=== PATIENT | female | born 1990 | race Caucasian/White ===

== ENCOUNTER 2018-07-18 22:54 | Emergency (ER) | payer BC, OTHER ==
[~2018-07-18 22:54] MED LIST: ALBU8.5H IH; AMOX-559 PO; BUDE10.2 INH; CLO10 MT; FLUT1DIS29 IH; HYDR-385 PO; PRED20TA6 PO; TIOT4MIS2 INH
--- NOTE | 2018-07-18 22:58 | ER Report ---
History and Physical Time Seen By MD: 22:57 HPI/ROS CHIEF COMPLAINT: Difficulty breathing HISTORY OF PRESENT ILLNESS: 28-year-old female smoker presents to the ER with difficulty breathing. Patient was seen by her primary care physician a few days ago and started on Zithromax for an asthma exacerbation and bronchitis. She's failed to improve infectious got worse. She's having difficulty breathing tonight. REVIEW OF SYSTEMS: Respiratory: As above Cardiovascular: No chest pain, no palpitations. Gastrointestinal: No vomiting, no abdominal pain. Musculoskeletal: No back pain. Allergies: Coded Allergies: codeine (Verified Adverse Reaction, Unknown, "SLEPT FOR 24 HOURS", ) Home Meds Active Scripts Albuterol Sulfate (PROVENTIL HFA) 6.7 Gm Inh, 2 PUFF INH Q4-6H PRN for asthma SX, #1 INH Prov:ABDOUL DAVE DO 07/18/18 Codeine Phosphate/Guaifenesin (Guaifenesin-Codeine Syrup) 10 Mg-100 Mg/5 Ml Liquid, 5-10 ML PO Q4H PRN for COUGH, #120 Prov:ABDOUL DAVE DO 07/18/18 Prednisone 10 Mg Tab (PREDNISONE 10 MG TAB) 10 Mg Tablet, 10 MG PO QDAY PRN for reduce lung inflammation, #12 2 tabs daily for 4 days 1 tab daily for 4 days Prov:ABDOUL DAVE DO 07/18/18 Cefuroxime Axetil (CEFUROXIME) 500 Mg Tablet, 500 MG PO BID for infection, #20 TAB Prov:ABDOUL DAVE DO 07/18/18 Reported Medications Albuterol Sulfate 90 Mcg/Act (PROAIR HFA 90 MCG/ACT) 8.5 Gm Hfa.aer.ad, 1-2 PUFF IH 3-4XD, INHALER 07/18/18 Fluticasone/Salmeterol (ADVAIR 500-50 DISKUS) 1 Each Disk.w.dev, 1 EACH IH BID 07/18/18 Cetirizine Hcl (ZYRTEC) 10 Mg Tablet, 10 MG PO QDAY, TAB 07/18/18 Norgestrel-Ethinyl Estradiol (CRYSELLE) 1 Each Tablet, 1 EACH PO QDAY 07/18/18 Discontinued Reported Medications Fluticasone/Salmeterol (ADVAIR 500-50 DISKUS) 1 Each Disk.w.dev, 1 EACH IH BID 03/16/17 Discontinued Scripts Clotrimazole (CLOTRIMAZOLE) 10 Mg Troc, 1 EA MT 5XD, #70 EA 1 Refill Prov:ELIGIO SR RAFAEL [employer] SOFTWARE DESIGNER-C 03/16/17 Prednisone (PREDNISONE) 20 Mg Tablet, 2 TAB PO QDAY, #10 TAB 0 Refills Prov:JAMESREYESELIGIOHAJA HALL SYSTEM[employer] SOFTWARE DESIGNER-C 03/16/17 Hydrocodone Bit/Acetaminophen (HYDROCODON-ACETAMINOPHEN 5-325) 1 Each Tablet, 1 EACH PO Q6H PRN for pain / cough, #15 TAB Prov:ELIGIO SR RAFAEL [employer] SOFTWARE DESIGNER-C 03/16/17 Past Medical/Surgical History Past Medical History HEENT: Denies hx of: vision deficit Respiratory: Reports hx of: asthma Psychiatric: Reports hx of: anxiety depression PTSD Past Surgical History Additional Cardio surgeries VSD, Pericarditis Gastrointestinal: Reports hx of: appendectomy Reviewed Nurses Notes: Yes Old Medical Records Reviewed: Yes Smoking Status: Current: Every Day Smoker Constitutional Vital Sign - Last 24 Hours 07/18/18 07/18/18 07/18/18 07/18/18 22:58 22:59 23:09 23:15 Temp 98.5 Pulse 83 70 Resp 18 B/P (MAP) 117/89 (98) 117/87 Pulse Ox 96 96 96 O2 Delivery Room Air Room Air 07/18/18 07/18/18 07/18/18 07/18/18 23:15 23:24 23:37 23:39 Pulse 69 78 80 Resp 14 B/P (MAP) 108/75 (86) Pulse Ox 100 96 07/18/18 23:54 Pulse 81 Pulse Ox 96 Physical Exam General Appearance: The patient is alert, has no immediate need for airway protection and no current signs of toxicity. Vital signs stable, pulse ox normal, afebrile HEENT: Pupils equal and round no injection. TMs normal, oropharynx with moderate erythema, no exudate or petechiae Respiratory: Expiratory wheezing throughout all lung alex. Cardiac: regular rate and rhythm Gastrointestinal: Abdomen is soft and non tender, no masses, bowel sounds normal. Musculoskeletal: Neck: Neck is supple and non tender. No lymphadenopathy Extremities have full range of motion and are non tender. Skin: No rashes or lesions. DIFFERENTIAL DIAGNOSIS: After history and physical exam differential diagnosis was considered for bronchitis, asthma, pneumonia Medical Decision Making EKG/Imaging Imaging X-ray: Two-view chest x-ray was obtained. I viewed the images myself on the PACS system. My interpretation of the images is: Lung Alex are clear, no effusion, mediastinum is normal. The radiologist interpretation had no clinically significant variation from this interpretation. ED Course/Re-evaluation ED Course Patient admitted to an examination room. H&P was done. The differential diagnoses was considered. On clinical examination. Patient with with gross expiratory wheezing. Her vital signs are stable, pulse ox is normal. Patient's treated with DuoNeb 2, prednisone 60 mg by mouth. Chest x-ray was performed which was unremarkable. The results were discussed with the patient. She'll be treated with Ceftin, prednisone. She's given Robitussin-AC cough syrup to suppress her cough. She is advised to follow-up with her primary care if not improved in 3-5 days. She is advised to return to the ER for any worsening Decision to Disposition Date: Jul 18, 2018 Decision to Disposition Time: 23:46 Depart Departure Latest Vital Signs Vital Signs Date Time Temp Pulse Resp B/P (MAP) Pulse Ox O2 Delivery O2 Flow Rate FiO2 07/18/18 23:54 81 96 07/18/18 23:37 108/75 (86) 07/18/18 23:15 14 07/18/18 23:15 Room Air 07/18/18 22:59 98.5 Impression: Primary Impression: Acute bronchitis Additional Impressions: Asthma exacerbation Tobacco dependence Condition: Improved Disposition: HOME OR SELF-CARE Referrals: ELIGIO SR APRN SYSTEMS SOFTWARE DESIGNER-C (PCP) New Scripts Albuterol Sulfate (PROVENTIL HFA) 6.7 Gm Inh 2 PUFF INH Q4-6H PRN for asthma SX, #1 INH Prov: ABDOUL DAVE DO 07/18/18 Codeine Phosphate/Guaifenesin (Guaifenesin-Codeine Syrup) 10 Mg-100 Mg/5 Ml Liquid 5-10 ML PO Q4H PRN for COUGH, #120 Prov: ABDOUL DAVE DO 07/18/18 Prednisone 10 Mg Tab (PREDNISONE 10 MG TAB) 10 Mg Tablet 10 MG PO QDAY PRN for reduce lung inflammation, #12 2 tabs daily for 4 days 1 tab daily for 4 days Prov: ABDOUL DAVE DO 07/18/18 Cefuroxime Axetil (CEFUROXIME) 500 Mg Tablet 500 MG PO BID for infection, #20 TAB Prov: ABDOUL DAVE DO 07/18/18 Patient Instructions: Acute Bronchitis (ED), Asthma (ED) Additional Instructions: Follow-up with primary care if unimproved in 2-5 days Problem Qualifiers Primary Impression: Acute bronchitis Bronchitis organism: unspecified organism Qualified Codes: J20.9 - Acute bronchitis, unspecified Additional Impressions: Asthma exacerbation Asthma severity: mild Asthma persistence: persistent Qualified Codes: J45.31 - Mild persistent asthma with (acute) exacerbation ABDOUL DAVE DO Jul 18, 2018 22:58
[2018-07-18] MEDS ORDERED: CETI-176 PO (23:08)
[2018-07-18] MEDS ORDERED: NORG1TAB76 PO (23:08)
[2018-07-18] MEDS ORDERED: predniSONE 20 MG TAB PO ONE (23:10)
[2018-07-18] MEDS ORDERED: ALBUTEROL/IPRATROPIUM 3 ML NEB NEB ONE (23:10)
[2018-07-18] MEDS ORDERED: ALBU8.5H IH (23:10)
[2018-07-18] MEDS ORDERED: FLUT1DIS29 IH (23:10)
[2018-07-18 23:37] VITALS: BP 108/75
[2018-07-18] MEDS ORDERED: PRED-1 PO (23:51)
[2018-07-18] MEDS ORDERED: CEFU500T10 PO (23:51)
[2018-07-18] MEDS ORDERED: ALB6.7R INH (23:51)
[2018-07-18] MEDS ORDERED: GUAI473L81 PO (23:51)
--- NOTE | 2018-07-18 23:52 | RADIOLOGY IMAGING REPORT ---
FACILITY: [facility] - [place] PATIENT NAME: Theresa Parada : 1990 MR: [id number] V: [id number] EXAM DATE: ORDERING PHYSICIAN: ABDOUL DAVE TECHNOLOGIST: Location: [facility] Patient: Theresa Parada : 1990 Visit/Account:[id number] Date of Sevice: 07/18/2018 HISTORY: Shortness of breath DATE: 07/18/2018 11:36 PM TECHNIQUE: CHEST PA AND LAT COMPARISON: none FINDINGS: The cardiomediastinal silhouette is of normal size and contour. No pleural effusion. No pne umothorax. No consolidation. The lungs are adequately expanded. IMPRESSION: No focal pneumonia. Report Dictated By: Momo Marshall MD at 07/18/2018 11:47 PM Report E-Signed By: Momo Marshall MD at 07/18/2018 11:48 PM WSN:[id number]
[2018-07-18] MEDS ORDERED: guaiFENesin/CODEINE 5 ML UDBTL PO ONE (23:55)
[2018-07-18] MEDS ORDERED: CEFUROXIME AXETIL 250 MG TAB PO ONE (23:55)
== END 2018-07-19 00:07 | disposition home or self-care (01) ==
LOC: ER 23:00
DX: J20.9 Acute bronchitis, unspecified (principal); J45.31 Mild persistent asthma with (acute) exacerbation
CPT/HCPCS: 71046; 94640; 99283; J7512; J7620

== ENCOUNTER 2018-09-13 12:00 | Emergency (ER) | payer BC ==
[~2018-09-13 12:00] MED LIST changes: +ALB6.7R INH; +CEFU500T10 PO; +CETI-176 PO; +GUAI473L81 PO; +NORG1TAB76 PO; +PRED-1 PO
--- NOTE | 2018-09-13 12:16 | ER Report ---
History and Physical Time Seen By MD: 12:15 Hx. of Stated Complaint: PATIENT REPORTS ASTHMA EXACERBATION THAT STARTED AT 0200 THIS MORNING. SHE HAS BEEN USING HER INHALER HPI/ROS CHIEF COMPLAINT: Shortness of breath HISTORY OF PRESENT ILLNESS: This is a 28-year-old female presents to the emergency department for shortness breath. Patient states that yesterday she began to have some increased shortness of breath, she does have a history of asthma, began using her inhaler more frequently, then around 2:00 in the morning she woke from sleeping with a "severe asthma attack". Patient states she used her rescue inhaler then and she used it several times this morning with little to no relief. The patient was seen and evaluated for asthma exacerbation roughly 2 months ago. Her asthma has been well controlled over the last several years however since moving to [place] roughly 2 years ago her asthma seems to have bec ome increasingly problematic. She states that she had one episode of vomiting after a coughing episode. She states she has some chest pressure that has been ongoing since early this morning. She denies fevers or chills. No visual changes. No rashes. No headaches. REVIEW OF SYSTEMS: Constitutional: No fever, no chills. Eyes: No discharge. ENT: No sore throat. Cardiovascular: As above. Respiratory: As above. Gastrointestinal: As above. Genitourinary: No hematuria. Musculoskeletal: No back pain. Skin: No rashes. Neurological: No headache. Allergies: Coded Allergies: codeine (Verified Adverse Reaction, Unknown, "SLEPT FOR 24 HOURS", 07/18/18) Home Meds Active Scripts Albuterol Sulfate 0.083% (ALBUTEROL SULFATE 0.083%) 2.5 Mg/3 Ml Vial.neb, 2.5 MG INH Q4-6H PRN for SHORTNESS OF BREATH, #20 VIAL 0 Refills Prov:JOYCE MICHAEL-BC 09/13/18 Prednisone (PREDNISONE) 20 Mg Tablet, 40 MG PO QDAY, #17 TAB 40mg once a day for 4 days. 30mg once a day for 3 days. 20mg once a day for 3 days. 10mg once a day for 2 days. Prov:JOYCE MICHAEL-BC 09/13/18 Albuterol Sulfate (PROVENTIL HFA) 6.7 Gm Inh, 2 PUFF INH Q4-6H PRN for asthma SX, #1 INH Prov:ABDOUL DAVE DO 07/18/18 Codeine Phosphate/Guaifenesin (Guaifenesin-Codeine Syrup) 10 Mg-100 Mg/5 Ml Liquid, 5-10 ML PO Q4H PRN for COUGH, #120 Prov:ABDOUL DAVE DO 07/18/18 Prednisone 10 Mg Tab (PREDNISONE 10 MG TAB) 10 Mg Tablet, 10 MG PO QDAY PRN for reduce lung inflammation, #12 2 tabs daily for 4 days 1 tab daily for 4 days Prov:ABDOUL DAVE DO 07/18/18 Cefuroxime Axetil (CEFUROXIME) 500 Mg Tablet, 500 MG PO BID for infection, #20 TAB Prov:ABDOUL DAVE DO 07/18/18 Reported Medications Albuterol Sulfate 90 Mcg/Act (PROAIR HFA 90 MCG/ACT) 8.5 Gm Hfa.aer.ad, 1-2 PUFF IH 3-4XD, INHALER 07/18/18 Fluticasone/Salmeterol (ADVAIR 500-50 DISKUS) 1 Each Disk.w.dev, 1 EACH IH BID 07/18/18 Cetirizine Hcl (ZYRTEC) 10 Mg Tablet, 10 MG PO QDAY, TAB 07/18/18 Norgestrel-Ethinyl Estradiol (CRYSELLE) 1 Each Tablet, 1 EACH PO QDAY 07/18/18 Past Medical/Surgical History The patient has a past medical and surgical history of to her surgeries, ventral septal defect, pericarditis, pneumonia, GERD, urinary tract infections, he TST, appendectomy. Reviewed Nurses Notes: Yes Smoking Status: Current: Every Day Smoker Hx Substance Use Disorder: No Hx Alcohol Use: No Constitutional Vital Sign - Last 24 Hours 09/13/18 09/13/18 09/13/18 09/13/18 12:04 12:06 12:30 12:32 Temp 98.0 Pulse 72 62 61 Resp 24 24 18 B/P (MAP) 101/68 101/68 (79) 105/67 (80) Pulse Ox 97 95 O2 Delivery Room Air 09/13/18 09/13/18 09/13/18 09/13/18 12:32 12:37 13:30 14:04 Pulse 61 79 Resp 18 11 B/P (MAP) 98/53 (68) Pulse Ox 93 90 92 O2 Delivery Room Air Room Air 09/13/18 09/13/18 14:04 14:10 Pulse 58 63 Resp 18 18 Physical Exam General Appearance: The patient is alert, has no immediate need for airway protection and no signs of toxicity, increased work of breathing. Eyes: Pupils equal and round no pallor or injection. ENT, Mouth: Mucous membranes are moist. Erythematous the posterior oropharynx, no petechiae. Respiratory: There are no retractions, lungs are diminished in the bases, clear with a very faint left upper expiratory wheeze. Cardiovascular: Regular rate and rhythm, no murmurs, clicks or rubs. Gastrointestinal: Abdomen is soft and non tender, no masses, bowel sounds normal. Neurological: Alert and oriented 4. Moving all extremity is. Following. No focal neuro deficits. Skin: Warm and dry, no rashes. Musculoskeletal: Neck is supple non tender. Extremities are nontender, nonswollen and have full range of motion. DIFFERENTIAL DIAGNOSIS: After history and physical exam differential diagnosis was considered for shortness of breath including but not limited to pulmonary infectious process, COPD, asthma, pulmonary embolus and congestive heart failure. Medical Decision Making Data Points Result Diagram: 09/13/18 1234 09/13/18 1234 Laboratory Hematology Test 09/13/18 12:34 Red Blood Count 4.60 M/uL (4.17-5.56) Mean Corpuscular Volume 91.4 fL (80.0-96.0) Mean Corpuscular Hemoglobin 31.1 pg (26.0-33.0) Mean Corpuscular Hemoglobin Concent 34.1 g/dL (32.0-36.0) Red Cell Distribution Width 13.2 % (11.5-14.5) Mean Platelet Volume 8.2 fL (7.2-11.1) Neutrophils (%) (Auto) 58.4 % (39.4-72.5) Lymphocytes (%) (Auto) 29.5 % (17.6-49.6) Monocytes (%) (Auto) 7.7 % (4.1-12.4) Eosinophils (%) (Auto) 3.1 % (0.4-6.7) Basophils (%) (Auto) 1.3 % (0.3-1.4) Nucleated RBC Relative Count (auto) 0.0 /100WBC Neutrophils # (Auto) 3.0 K/uL (2.0-7.4) Lymphocytes # (Auto) 1.5 K/uL (1.3-3.6) Monocytes # (Auto) 0.4 K/uL (0.3-1.0) Eosinophils # (Auto) 0.2 K/uL (0.0-0.5) Basophils # (Auto) 0.1 K/uL (0.0-0.1) Nucleated RBC Absolute Count (auto) 0.00 K/uL Sodium Level 141 mmol/L (137-145) Potassium Level 3.9 mmol/L (3.5-5.0) Chloride Level 110 mmol/L (98-107) Carbon Dioxide Level 19 mmol/L (22-31) Blood Urea Nitrogen 12 mg/dl (7-18) Creatinine 0.60 mg/dl (0.52-1.04) Glomerular Filtration Rate Calc > 60.0 Random Glucose 86 mg/dl (75-110) Calcium Level 9.1 mg/dl (8.4-10.2) Total Bilirubin 0.4 mg/dl (0.2-1.3) Aspartate Amino Transf (AST/SGOT) 19 U/L (0-35) Alanine Aminotransferase (ALT/SGPT) 22 U/L (0-56) Alkaline Phosphatase 42 U/L (0-126) Troponin I < 0.012 ng/ml Total Protein 6.9 g/dl (6.3-8.2) Albumin 4.2 g/dl (3.5-5.0) Chemistry Test 09/13/18 12:34 White Blood Count 5.1 k/uL (4.5-11.0) Red Blood Count 4.60 M/uL (4.17-5.56) Hemoglobin 14.3 g/dL (12.0-16.0) Hematocrit 42.0 % (34.0-47.0) Mean Corpuscular Volume 91.4 fL (80.0-96.0) Mean Corpuscular Hemoglobin 31.1 pg (26.0-33.0) Mean Corpuscular Hemoglobin Concent 34.1 g/dL (32.0-36.0) Red Cell Distribution Width 13.2 % (11.5-14.5) Platelet Count 290 K/uL (150-450) Mean Platelet Volume 8.2 fL (7.2-11.1) Neutrophils (%) (Auto) 58.4 % (39.4-72.5) Lymphocytes (%) (Auto) 29.5 % (17.6-49.6) Monocytes (%) (Auto) 7.7 % (4.1-12.4) Eosinophils (%) (Auto) 3.1 % (0.4-6.7) Basophils (%) (Auto) 1.3 % (0.3-1.4) Nucleated RBC Relative Count (auto) 0.0 /100WBC Neutrophils # (Auto) 3.0 K/uL (2.0-7.4) Lymphocytes # (Auto) 1.5 K/uL (1.3-3.6) Monocytes # (Auto) 0.4 K/uL (0.3-1.0) Eosinophils # (Auto) 0.2 K/uL (0.0-0.5) Basophils # (Auto) 0.1 K/uL (0.0-0.1) Nucleated RBC Absolute Count (auto) 0.00 K/uL Glomerular Filtration Rate Calc > 60.0 Calcium Level 9.1 mg/dl (8.4-10.2) Total Bilirubin 0.4 mg/dl (0.2-1.3) Aspartate Amino Transf (AST/SGOT) 19 U/L (0-35) Alanine Aminotransferase (ALT/SGPT) 22 U/L (0-56) Alkaline Phosphatase 42 U/L (0-126) Troponin I < 0.012 ng/ml Total Protein 6.9 g/dl (6.3-8.2) Albumin 4.2 g/dl (3.5-5.0) EKG/Imaging EKG Interpretation 12 lead EKG: Time of EKG 12:30 Rhythm: Normal sinus rhythm, ventricular rate 61 bpm. [place]: normal QRS: Right bundle branch block. ST segments: No ST depression or elevation identifying, inverted T waves in V1, V2, V3, flat T-wave in V4, V5 and V6. No previous EKGs for comparison. Imaging CHEST PA AND LAT Additional pertinent History: Respiratory distress COMPARISON STUDIES: 07/18/2018 FINDINGS: Support lines and catheters: None Lungs and Pleura: Lung adamson well expanded with no infiltrates or consolidations. No parenchymal mass lesions are seen. There are no effusions Heart and vasculature: Negative. Kacey and Mediastinum: Negative. Bones and Chest wall: Negative. Upper Abdomen: Negative. IMPRESSION: 1. Negative chest. No interval change compared to previous study.* Report Dictated By: Jc Haji MD at 09/13/2018 2:06 PM Report E-Signed By: Jc Haji MD at 09/13/2018 2:07 PM [email or web address] ED Course/Re-evaluation Clinical Indication for ER IV: IV Access ED Course The patient was admitted to room. A history of physical were obtained. Differential diagnoses were considered. An IV was started. A CBC, CMP, troponin were obtained. A two-view chest x-ray was negative for any acute cardiopulmonary process. EKG showing normal sinus rhythm, with a right bundle branch block. Patient was given a DuoNeb 2, 125 mg Solu-Medrol. Lab studies unremarkable, negative troponin. A 1 L normal saline bolus was given. Patient states feeling better after the 2nd DuoNeb. I reviewed the results with the patient. I did tell her this is likely an asthma exacerbation. I did write a prescription for a home nebulizer and nebulized albuterol, she does have a rescue inhaler at home. Also sent her home with a tapering dose of prednisone. I did recommend following up with primary care provider, they can discuss adjusting her asthma medications. Patient was in agreement with this plan care and discharged home. Patient had no other questions at this time. Decision to Disposition Date: Sep 13, 2018 Decision to Disposition Time: 14:33 Depart Departure Latest Vital Signs Vital Signs Date Time Temp Pulse Resp B/P (MAP) Pulse Ox O2 Delivery O2 Flow Rate FiO2 09/13/18 14:10 63 18 09/13/18 14:04 92 Room Air 09/13/18 13:30 98/53 (68) 09/13/18 12:04 98.0 Impression: Primary Impression: Asthma exacerbation Condition: Improved Disposition: HOME OR SELF-CARE Referrals: RADHA GUY APRN (PCP) SURAJ SANTIAGO JR, MD New Scripts Albuterol Sulfate 0.083% (ALBUTEROL SULFATE 0.083%) 2.5 Mg/3 Ml Vial.neb 2.5 MG INH Q4-6H PRN for SHORTNESS OF BREATH, #20 VIAL 0 Refills Prov: JOYCE MICHAEL 09/13/18 Prednisone (PREDNISONE) 20 Mg Tablet 40 MG PO QDAY, #17 TAB 40mg once a day for 4 days. 30mg once a day for 3 days. 20mg once a day for 3 days. 10mg once a day for 2 days. Prov: JOYCE MICHAEL 09/13/18 Departure Forms: ER Transition Record, Medications Reconciliation, Patient Portal Information Patient Instructions: Asthma (ED) Additional Instructions: Take the prednisone as prescribed. Use the nebulizer as needed. Be sure to follow up with your PCP next week for reevaluation and discuss changing asthma medications. Follow up with Dr. Santiago for allergy testing. Drink plenty of water. Get plenty of rest. Return to the ED for any other concerns or worsening symptoms. Problem Qualifiers Primary Impression: Asthma exacerbation Asthma severity: moderate Asthma persistence: unspecified Qualified Co louann: J45.901 - Unspecified asthma with (acute) exacerbation JOYCE MICHAEL- Sep 13, 2018 12:16
[2018-09-13] MEDS ORDERED: NS(*) 0.9% 1000 ML BAG 1,000 ML IV ONE (12:24)
[2018-09-13] MEDS ORDERED: methylPREDNIS SUCC 125 MG/2ML IVP ONE (12:25)
[2018-09-13] MEDS ORDERED: ALBUTEROL/IPRATROPIUM 3 ML NEB NEB ONE ×2 (12:25→13:45)
[2018-09-13 12:44] LABS: PLATELET COUNT, AUTOMATED 290 K/uL (150-450)
--- NOTE | 2018-09-13 12:46 | EKG ---
FACILITY: [facility] [place] PATIENT NAME: MAURY MCELROY : [id number] MR: [id number] V: [id number] EXAM DATE: ORDERING PHYSICIAN: JOYCE MICHAEL TECHNOLOGIST: ANNY Wahl Reason : RESPIRATORY Blood Pressure : / mmHG Vent. Rate : 061 BPM Atrial Rate : 061 BPM P-R Int : 138 ms QRS Dur : 134 ms QT Int : 450 ms P-R-T Axes : 034 070 037 degrees QTc Int : 453 ms Normal sinus rhythm Right bundle branch block Abnormal ECG No previous ECGs available Confirmed by AUGUST CHAN ([id number]) on 09/13/2018 3:00:44 PM Referred By: Confirmed By:AUGUST CHAN
[2018-09-13 13:30] VITALS: BP 98/53
[2018-09-13] MEDS ORDERED: PRED20TA6 PO (14:10)
--- NOTE | 2018-09-13 14:12 | RADIOLOGY IMAGING REPORT ---
FACILITY: [facility] PATIENT NAME: Theresa Parada : 1990 MR: [id number] V: [id number] EXAM DATE: ORDERING PHYSICIAN: JOYCE MICHAEL TECHNOLOGIST: Location: [facility] - [place] Patient: Theresa Parada : 1990 Visit/Account:[id number] Date of Sevice: 09/13/2018 CHEST PA AND LAT Additional pertinent History: Respiratory distress COMPARISON STUDIES: 07/18/2018 FINDINGS: Support lines and catheters: None Lungs and Pleura: Lung adamson well expanded with no infiltrates or consolidations. No parenchymal ma ss lesions are seen. There are no effusions Heart and vasculature: Negative. Kacey and Mediastinum: Negative. Bones and Chest wall: Negative. Upper Abdomen: Negative. IMPRESSION: 1. Negative chest. No interval change compared to previous study.* Report Dictated By: Jc Haji MD at 09/13/2018 2:06 PM Report E-Signed By: Jc Haji MD at 09/13/2018 2:07 PM WSN:[email or web address]
[2018-09-13] MEDS ORDERED: ALBU2.5V36 INH (14:15)
== END 2018-09-13 14:45 | disposition home or self-care (01) ==
LOC: ER 12:49
DX: J45.901 Unspecified asthma with (acute) exacerbation (principal)
CPT/HCPCS: 71046; 84484; 85025; 93005; 94640; 96361; 96374; 99284; J2930; J7030; J7620; 82040; 82247; 82310; 82374; 82435; 82565; 82947; 84075; 84132; 84155; 84295; 84450; 84460; 84520